=== PATIENT | female | born 1995 | race Caucasian/White ===

== ENCOUNTER 2024-10-08 13:21 | Emergency (ER) | payer BC, SELFPAY ==
[2024-10-08 13:25] VITALS: BP 139/100
[2024-10-08] MEDS: NSS 1000 IV (14:18)
[2024-10-08 14:22] VITALS: BP 121/102
[2024-10-08 14:31] LABS: Hematocrit 39.1 % (37.0-47.0); Hemoglobin 13.1 g/dL (12.0-16.0); Mean Corp Hgb Conc. 33.5 g/dL (33.0-37.0); Mean Corpuscular Hgb 29.7 pg (27.0-31.0); Mean Corpuscular Volume 88.7 fL (81.0-99.0); Mean Platelet Volume 9.5 fL (7.4-10.4); Platelet Count 376 10^3/uL (130-400); Red Blood Cell Count 4.41 10^6/uL (4.20-5.40); Red Cell Dist. Width 13.1 % (11.5-14.5); White Blood Cell Count 7.7 10^3/uL (4.8-10.8)
[2024-10-08 14:46] LABS: ALT (SGPT) 41 U/L (0-35); AST (SGOT) 23 U/L (14-36); Albumin 5.2 g/dl (3.5-5.0); Alkaline Phosphatase 53 U/L (38-126); Blood Urea Nitrogen 17 mg/dl (7-17); Calcium 9.8 mg/dl (8.4-10.2); Carbon Dioxide 23 mmol/L (22-30); Chloride 106 mmol/L (98-107); Glucose 85 mg/dl (70-99); Potassium 4.3 mmol/L (3.5-5.1); Sodium 142 mmol/L (135-145); Total Protein 8.5 g/dl (6.3-8.2); eGFR > 60.00
[2024-10-08 14:56] LABS: HCG, Serum Qualitative Screen Negative
[2024-10-08 15:00] VITALS: BP 120/99
[2024-10-08 16:00] VITALS: BP 127/92
--- NOTE | 2024-10-08 16:56 | ED.GENMED ---
History of Present Illness
General
Chief Complaint: Abdominal Symptoms
Time Seen by Provider: 10/08/24 13:40
History of Present Illness
History of Present Illness:
28-year-old female presents emergency department for evaluation of poor appetite as well as vomiting for the past 5 days. She reports depression with suicidal ideation, plan to overdose on her pills. She is a licensed counselor and states that she
has no intent to harm self at this time, when she began feeling suicidal she had her mom take away all of her pills so she no longer has access to her pills. She is stressed over relationship infidelity although admits that her current partner is a
strong support for her. She is hoping to talk to crisis. She contracts for safety in the ED
Review of Systems
Review of Systems
Allergies reviewed?: Yes
All Other Systems: ROS reviewed and negative except as documented in HPI and ROS
Phy Exam
Physical Exam
Physical Exam:
GEN: Well appearing, NAD, WDWN
HEENT: Oral mucosa moist, no scleral icterus
Cardiac: Regular rate
Lung: No respiratory distress, no tachypnea
MSK: No gross deformity or injuries
Skin: Good color, no pallor or jaundice, no rashes
Neuro: AO x3, moves all extremities freely
Psych: Calm, cooperative
Course
Orders/Labs/Results
Orders:
Orders
10/08/24 14:05
0.9% Sodium Chloride 1000 ml [Nss] 1,000 ml IV BOLUS
Test Result ONCE
10/08/24 14:06
Crisis Consult Urgent
Reason for Consult: SI, depression
10/08/24 14:15
Complete Blood Count/No Diff Urgent
Comprehensive Metabolic Panel Urgent
HCG, Serum Qualitative Screen Urgent
Abnormal Lab Results
10/08/24
14:15
ALT 41 H U/L
(0-35)
Total Protein 8.5 H g/dl
(6.3-8.2)
Albumin 5.2 H g/dl
(3.5-5.0)
10/08/24 14:15
10/08/24 14:15
Vital Signs
Initial and Last Documented VS:
Initial Vital Signs
Temp Pulse Resp BP Pulse Ox
99.2 F 114 16 139/100 97
10/08/24 13:25 10/08/24 13:25 10/08/24 13:25 10/08/24 13:25 10/08/24 13:25
Last Documented Vital Signs
Temp Pulse Resp BP Pulse Ox
99.2 F 114 16 127/92 100
10/08/24 13:25 10/08/24 13:25 10/08/24 13:10/08/24 16:00 10/08/24 16:30
MDM/Problems Addressed
MDM/Problems Addressed:
Patient is seen by crisis, at this time she has no intent to harm herself and she displays the insight to take protective measures for herself. She does not wish to change her current outpatient plan which includes her therapist, she has an
appointment tomorrow. In regards to her nausea and vomiting this is likely anxiety induced, she was given IV fluids here. She is requesting medication for sleep, while I am hesitant to provide medication to her given her indication that she may
harm herself with meds, I have ultimately opted to provide her a short course of nighttime nortriptyline as improved sleep may benefit her greatly
*Critical Care Note
Total Time (30-74mins, 75-104mins- exclusive of procedures): Not Applicable
ED Attending Note
-
Portions of this chart may have been created with voice recognition software.� Occasional wrong word or��sound alike� substitutions may have occurred due to the inherent limitations of voice recognition software.
Discharge Plan
Departure
Patient Disposition: Home (Routine Discharge)
Date of Disposition: 10/08/24
Time of Disposition: 16:56
Patient with high blood pressure during this ER visit?: No
Discharge Problem:
Depression with suicidal ideation, Insomnia
Instructions: Depression in adults - ED discharge instructions
Prescriptions:
New
nortriptyline 25 mg capsule
25 - 50 mg PO HS Qty: 10 0RF
Referrals:
Sahara Medina CRNP [Family Provider] -
Interventions
Interventions:
*Risk Screen - Suicide Last Done: 10/08/24 13:25
*General Assessment Last Done: 10/08/24 14:27
*Neglect/Abuse Screening Last Done: 10/08/24 13:25
*ED- Fall Risk Assessment Last Done: 10/08/24 14:27
*ED COVID-19 Vaccine History Last Done: 10/08/24 14:27
*Nursing Disposition Last Done: 10/08/24 17:22
[facility]-Tkvwsm-Mennjzopoz Assessment Last Done: 10/08/24 14:27
Discharge Date and Time
Discharge Date/Time: 10/08/24 17:22
Print Language: CAMEROONIAN
== END 2024-10-08 17:22 | disposition home or self-care (01) ==
LOC: EMR 13:21
PROVIDERS: Physician Assistant; EMERGENCY PHYSICIAN Emergency Medicine; FAMILY PHYSICIAN Registered Nurse
DX: R45.851 Suicidal ideations (principal); R11.2 Nausea with vomiting, unspecified; F32.A Depression, unspecified; G47.00 Insomnia, unspecified; R63.0 Anorexia
CPT/HCPCS: 99285; 96360; 80053; 84703; 85027